=== PATIENT | male | born 1965 | race Caucasian/White ===

== ENCOUNTER 2025-03-04 02:17 | Inpatient (IN) | payer OTHER, SELFPAY ==
[2025-03-03 21:11] VITALS: BP 227/120
[2025-03-03 21:23] LABS: Urine Albumin 3+ (Neg - Trace); Urine Bilirubin Negative (Negative); Urine Character Clear (Clear); Urine Color Yellow; Urine Glucose Negative (Negative); Urine Ketone Negative (Negative); Urine Leukocyte 1+ (Negative); Urine Nitrite Negative (Negative); Urine Occult Blood 4+ (Negative); Urine Specific Gravity 1.025 (<1.030); Urine Urobilinogen Negative (Neg - 1+)
[2025-03-03 21:24] LABS: % Basophils 0.5 % (0-2); % Eosinophils 1.1 % (0-6); % Immature Granulocytes 0.5 % (0-0.5); % Lymphocytes 15.4 % (20.5-51.1); % Monocytes 8.5 % (1.7-9.3); Absolute Basophils 0.1 10^3/uL (0-0.2); Absolute Eosinophils 0.2 10^3/uL (0-0.7); Absolute Immature Granulocytes 0.1 10^3/uL (0-0.05); Absolute Lymphocytes 2.3 10^3/uL (1.2-3.4); Absolute Monocytes 1.2 10^3/uL (0.1-0.6); Absolute Neutrophils 10.8 10^3/uL (1.4-6.5); Hematocrit 44.2 % (39.0-52.0); Hemoglobin 14.9 g/dL (13.0-18.0); Mean Corp Hgb Conc. 33.7 g/dL (33.0-37.0); Mean Corpuscular Hgb 28.7 pg (27.0-31.0); Mean Platelet Volume 9.8 fL (7.4-10.4); Nucleated Red Blood Cells % 0 % (-); Platelet Count 310 10^3/uL (130-400); Red Cell Dist. Width 13.9 % (11.5-14.5); White Blood Cell Count 14.6 10^3/uL (4.8-10.8)
[2025-03-03 21:33] LABS: Urine Squamous Cell 0-2 /LPF (Few); Urine Uric Acid Crystals Present
[2025-03-03 21:34] LABS: Urine Bacteria Many (Negative); Urine Red Blood Cell >100 /HPF (0-2); Urine White Cell 0-2 /HPF (0-5)
[2025-03-03 21:45] LABS: ALT (SGPT) 31 U/L (0-50); AST (SGOT) 23 U/L (17-59); Albumin 4.6 g/dl (3.5-5.0); Alkaline Phosphatase 74 U/L (38-126); Blood Urea Nitrogen 28 mg/dl (9-20); Calcium 9.7 mg/dl (8.4-10.2); Carbon Dioxide 23 mmol/L (22-30); Chloride 109 mmol/L (98-107); Glucose 119 mg/dl (70-99); Potassium 4.4 mmol/L (3.5-5.1); Sodium 141 mmol/L (135-145); Total Bilirubin 0.6 mg/dl (0.2-1.3); Total Protein 7.8 g/dl (6.3-8.2); eGFR > 60.00
[2025-03-03 22:02] VITALS: BMI 40.3
[2025-03-03] MEDS: DILAUDID 0.5 MG IV (22:10)
[2025-03-03] MEDS: NSS 1000 IV (22:10)
[2025-03-03] MEDS: TORADOL 15 MG IV (22:10)
[2025-03-03 22:24] VITALS: BP 209/91
--- NOTE | 2025-03-03 23:30 | EDRN ---
Updated patient and on results, aware provider will be in shortly as well, updated med list, patients pain is under control
[2025-03-04] VITALS (15 sets, daily range): BP systolic 112–190; BP diastolic 67–97; BMI 40.0
--- NOTE | 2025-03-04 00:03 | EDRN ---
Dr. Arenas at bedside seeing patient
--- NOTE | 2025-03-04 01:09 | ED.GENMED ---
History of Present Illness
General
Chief Complaint: Flank Pain
Time Seen by Provider: 03/03/25 23:43
History of Present Illness
History of Present Illness:
Patient is a 59-year-old male with history of kidney stones status post stenting lithotripsy, hypertension, hyperlipidemia, A-fib presenting to the emergency department with flank pain. Patient is for the past few days he been having right flank
pain as well as hematuria. Feels similar to prior kidney stones. Some nausea and vomiting. No diarrhea. His last kidney stone was many years ago. He denies any recent traumatic injuries. No lightheadedness dizziness. No fevers or chills. He
otherwise feels well
Past History
Past History
ED Past Medical History: Arrthythmia (1 episode Afib on Metoprolol) and Other (Kidney stones )
ED Past Surgical History: Urological and Other (Lithotripsies and cystoscopy )
Social History
Tobacco: Non-smoker
Alcohol: None
Drug: None
Personal:
Living: with family
Employment: Employed
Family History
Family History: Other (Noncontributory)
Phy Exam
Physical Exam
Physical Exam:
GENERAL: in no acute distress
HEENT: normocephalic, extraocular movements intact, moist oral mucosa
NECK: normal inspection
RESPIRATORY: no respiratory distress, clear to auscultation bilaterally
CARDIOVASCULAR: regular rate and rhythm
ABDOMEN/: soft, non-distended, non-tender to palpation, no rebound or guarding
EXTREMITIES: non-tender, no edema/swelling
NEUROLOGIC: awake and alert, moves all extremities
SKIN: warm
Course
Orders/Labs/Results
Orders:
Orders
03/03/25 21:17
Complete Blood Count/With Diff Urgent
Comprehensive Metabolic Panel Urgent
Urinalysis Reflex To Culture Urgent
Date Specimen was Collected: 03/03/25
Time Specimen was Collected: 21:12
Urine Microscopic Reflex Cult Urgent
Urine Culture Urgent
JOEY Source: U
Specimen Description:
Date Specimen was Collected: 03/03/25
Time Specimen was Collected: 21:12
03/03/25 22:05
Ketorolac [Toradol] 15 mg IV NOW STA
03/03/25 22:06
0.9% Sodium Chloride 1000 ml [Nss] 1,000 ml IV BOLUS
HYDROmorphone [Dilaudid] 0.5 mg IV NOW STA
03/03/25 22:29
Renal Only US [US Renal Only W/O Bladder] Urgent
Comment:
Reason For Exam: rt flank pain
03/04/25 00:26
HYDROmorphone [Dilaudid] 0.5 mg IV NOW STA
Abnormal Lab Results
03/03/25
21:17
WBC 14.6 H 10^3/uL
(4.8-10.8)
Abs Immat Gran (auto) 0.1 H 10^3/uL
(0-0.05)
Absolute Neuts (auto) 10.8 H 10^3/uL
(1.4-6.5)
Absolute Monos (auto) 1.2 H 10^3/uL
(0.1-0.6)
Lymphocytes % 15.4 L %
(20.5-51.1)
Chloride 109 H mmol/L
(98-107)
BUN 28 H mg/dl
(9-20)
Glucose 119 H mg/dl
(70-99)
Ur Occult Blood Reflex 4+ A
(Negative)
Leukocyte Esterase Rfl 1+ A
(Negative)
Urine RBC >100 A /HPF
(0-2)
Urine Bacteria (Reflex) Many A
(Negative)
Urine Albumin (Reflex) 3+ A
(Neg - Trace)
03/03/25 21:17
03/03/25 21:17
Vital Signs
Initial and Last Documented VS:
Initial Vital Signs
Temp Pulse Resp Pulse Ox
98.0 F 64 16 95
03/03/25 21:08 03/03/25 21:08 03/03/25 21:08 03/03/25 21:08
Last Documented Vital Signs
Temp Pulse Resp BP Pulse Ox
98.0 F 65 16 209/91 95
03/03/25 21:11 03/03/25 21:11 03/03/25 21:11 03/03/25 22:24 03/03/25 21:11
MDM/Problems Addressed
Differential Diagnosis Includes:
Patient is a 59-year-old male with multiple kidney stones in the past presenting to the emergency department with flank pain and hematuria. On arrival patient is hypertensive which patient states is normal when he has a kidney stone. Exam does
show overall well-appearing man. Likely kidney stone versus urine infection. Given benign abdomen less likely be intra-abdominal pathology such as diverticulitis or an acute surgical abdomen. Will obtain blood work and CT scan as well as urine
sample. Will pain control
Patient states that his urologist advised against further CT scans given amount of radiation he has had. He is requesting ultrasound. I do think it is appropriate as my suspicion for kidney stone is much higher on my differential
*Critical Care Note
Total Time (30-74mins, 75-104mins- exclusive of procedures): Not Applicable
Update Note
Update Note:
Ultrasound preliminary read as right-sided obstructive uropathy with hydronephrosis and an 8 mm stone in the proximal ureter. His blood work does show a leukocytosis. His urine does have 1+ leuk with minimal WBC. He is afebrile and overall
well-appearing. Will hold off on antibiotics. He has received multiple rounds of pain medications. After shared decision making patient opted for admission. Discussed with urology who is in agreement I discussed with hospitalist for admission.
ED Attending Note
-
Portions of this chart may have been created with voice recognition software.� Occasional wrong word or��sound alike� substitutions may have occurred due to the inherent limitations of voice recognition software.
Discharge Plan
Departure
Patient Disposition: Admit
Date of Disposition: 03/04/25
Time of Disposition: 01:09
Presentation/result/management discussed w/ accepting MD/DO: Hospitalist
Discharge Problem:
Urinary tract obstruction by kidney stone
Prescriptions:
No Action
metoprolol tartrate 25 MG tablet
12.5 mg PO DAILY
allopurinol 100 MG tablet
100 mg PO DAILY
rosuvastatin 10 MG tablet
10 mg PO MOWEFR
hydrochlorothiazide 12.5 MG tablet
12.5 mg PO Daily Qty: 0 0RF
Rx Instructions:
Hold if systolic blood prssure <130 while on Oxycodone.
potassium citrate 15 MEQ tablet extended release
15 meq PO BID
Referrals:
UNKNOWN - PT DOES,NOT KNOW [Family Provider] -
Interventions
Interventions:
*Risk Screen - Suicide Last Done: 03/03/25 21:11
*General Assessment Last Done: 03/03/25 21:08
*Neglect/Abuse Screening Last Done: 03/03/25 21:08
*ED- Fall Risk Assessment Last Done: 03/03/25 21:08
*ED COVID-19 Vaccine History Last Done: 03/03/25 21:08
QX-Zxetul-Owivsqwkmb Assessment Last Done: 03/03/25 22:21
ED-Male Genitourinary Assessment Last Done: 03/03/25 22:21
Discharge Date and Time
Print Language: OCCITAN
--- NOTE | 2025-03-04 01:43 | HPS.HSE ---
Family Physician
-
Family Physician: NOT KNOW UNKNOWN - PT DOES
Chief Complaint
-
R Flank Pain
History of Present Illness
Patient is a 59y M with PMH significant for nephrolithiasis who presents to ED complaining of R flank pain x 3 days. Patient has prior history of multiple kidney stones in the past. He has required ESWL / cysto and stent on occasion, but has
also passed several stones spontaneously. Patient states that he started with R flank pain on evening. He had associated N/V. His symptoms then waxed and waned over the next few days. This evening he again developed N/V, noted increased
pain and now noted dark colored urine. He was unable to achieved pain relief with his medications at home and presented to the ED for further evaluation.
Medical History
Past Medical History
Past Medical History: Reports Other
Additional Past Medical History:
Recurrent Nephrolithiasis
Hypertension
BHAVYA
Holiday Heart / Lone A-Fib (2016)
Past Surgical History: Reports Other
Additional Past Surgical History:
ESWL
Cysto / Stent
Bilateral Knee Arthroscopies
Social History
Tobacco: Non-smoker
Alcohol: Occasional
Drug: None
Family History
Family History: Not pertinent
Allergies / Home Medications
Allergies reflects when Allergies were last updated in [employer]
Home Medications with original date entered in [employer]
Allergy/Medication List:
Allergies
Allergy/AdvReac Type Severity Reaction Status Date / Time
diltiazem HCl [From Cardizem] Allergy Unknown Hives Verified 03/27/22 13:09
Latex, Natural Rubber Allergy Rash Verified 03/27/22 13:09
Home Medications
metoprolol tartrate 25 mg tablet 12.5 mg PO DAILY Blood pressure 04/19/17
allopurinol 100 mg tablet 100 mg PO DAILY Gout 10/30/20
rosuvastatin 10 mg tablet 10 mg PO MOWEFR High cholesterol 10/30/20
hydrochlorothiazide 12.5 mg tablet 12.5 mg PO Daily ##0 11/06/20
potassium citrate 15 mEq (1,620 mg) tablet,extended release 15 meq PO BID 04/13/21
Review of Systems
-
History Source: Patient
A 12 point ROS was completed and negative except as noted: Yes
Constitutional: Denies Fever or Chills
Respiratory: Denies Cough or Trouble Breathing
Cardiac: Denies Chest Pain or Palpitations
Abdomen/GI: Reports Nausea and Vomiting; Denies Abdominal Pain, Diarrhea, Bloody Stools or Black Stools
: Reports Flank Pain and Dark Urine; Denies Dysuria or Frequency
Neurological: Denies Dizzy or Headache
Physical Exam
Vital Signs
Vital Signs
Temp Pulse Resp BP Pulse Ox
98.0 F 65 16 209/91 95
03/03/25 21:11 03/03/25 21:11 03/03/25 21:11 03/03/25 22:24 03/03/25 21:11
Physical Exam
General: Other (59y M in no distress.)
HEENT: Moist mucous membranes and PERRLA
Respiratory: Clear; No Wheezes, Rales or Rhonchi
Cardiac: S1/S2 and Regular Rhythm; No Murmur
GI: Soft, Non Tender, Non Distended and Normal Bowel Sounds
Genito-urinary: No costovertebral tender
Musculoskeletal: No Clubbing, No Cyanosis and No Edema
Neuro: AO x 3
Laboratory Results
-
03/03/25 21:17
03/03/25 21:17
Laboratory Results
Total Bilirubin 0.6 mg/dl (0.2-1.3) 03/03/25 21:17
AST 23 U/L (17-59) 03/03/25 21:17
ALT 31 U/L (0-50) 03/03/25 21:17
Alkaline Phosphatase 74 U/L (38-126) 03/03/25 21:17
Impression/Plan
-
A/P: Patient is a 59y M with PMH significant for recurrent kidney stones who presents to ED complaining of R flank pain for the past 3 days.
Right Ureterolithiasis
Obstructive Uropathy secondary to the above
- Admit for further evaluation and treatment.
- US done in the ED shows 0.8cm stone in the proximal R ureter with associated hydro.
- NPO, IVFs, strain urine, Flomax, etc.
- Pain control, antiemetics, etc.
- Urology evaluation for additional recommendations.
Hypertension - Uncontrolled
- BP markedly elevated in the ED - likely secondary to significant pain on arrival.
- Continue efforts at pain control as noted above.
- Continue usual metoprolol and HCTZ.
- IV hydralazine as needed for very high BP.
- Adjust regimen as needed.
Holiday Heart / Lone A-Fib
- Isolated episode in 2016. No recurrence since that time.
- Patient takes metoprolol as preventative.
- Not on any OAC, antiplatelets, etc.
Obesity due to excess calories
- Affects all aspects of care.
- Encourage healthy diet and increased activity with goal of weight loss.
DVT Prophylaxis: SCDs
Code Status: Full
--- NOTE | 2025-03-04 02:30 | EDRN ---
Patient remains pain free at this time, sitting in a chair for comfort aware to call if pain increases
[2025-03-04] MEDS: NSS 1000 IV ×2 (04:18→11:45)
[2025-03-04] MEDS: TORADOL 15 MG IV (05:19)
[2025-03-04] MEDS: DILAUDID 0.5 MG IV (05:20)
--- NOTE | 2025-03-04 05:41 | EDRN ---
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
--- NOTE | 2025-03-04 06:14 | EDRN ---
Urology at bedside
[2025-03-04 06:27] LABS: Hematocrit 40.4 % (39.0-52.0); Hemoglobin 13.5 g/dL (13.0-18.0); Mean Corp Hgb Conc. 33.4 g/dL (33.0-37.0); Mean Corpuscular Hgb 28.8 pg (27.0-31.0); Mean Corpuscular Volume 86.3 fL (80.0-94.0); Mean Platelet Volume 10.4 fL (7.4-10.4); Platelet Count 274 10^3/uL (130-400); Red Blood Cell Count 4.68 10^6/uL (4.70-6.10)
--- NOTE | 2025-03-04 06:30 | CON.MD ---
Consultation - Medical
-
see dictated note
pt with long hx of stones
now presents with several days of right colic
no fevers/chills
ct shows large right renal stone- but two large right ureteral stones
reviewed options
to OR today for right ureteral stent- which would then be followed by second stage stone treatment in 1-2 weeks
rational- risks,benefits,alternatives and disabilities reviewed
[2025-03-04 06:49] LABS: Blood Urea Nitrogen 25 mg/dl (9-20); Calcium 8.6 mg/dl (8.4-10.2); Carbon Dioxide 24 mmol/L (22-30); Chloride 111 mmol/L (98-107); Estimated Creatinine Clearance 107 ml/min; Glucose 110 mg/dl (70-99); Potassium 4.2 mmol/L (3.5-5.1); Sodium 141 mmol/L (135-145); eGFR > 60.00
[2025-03-04] MEDS: ZYLOPRIM 100 MG PO (08:08)
[2025-03-04] MEDS: FLOMAX 0.4 MG PO (08:08)
[2025-03-04] MEDS: ORETIC 12.5 MG PO (08:09)
[2025-03-04] MEDS: KCL 20 MEQ PO (08:09)
[2025-03-04] MEDS: LOPRESSOR 12.5 MG PO (08:09)
[2025-03-04] MEDS: CRESTOR 10 MG PO (08:10)
--- NOTE | 2025-03-04 10:59 | W.IMMPOSTOP ---
Surgical Immed Post Op Note
-
Primary Surgeon:
manuela
Assisting Surgeon:
Pre-op Diagnosis:
right ureteral and reanl stones
Post-op Diagnosis:
same
Procedure Performed:
cysto, right retrograde, stone manipulation, right ureteral stent
Anesthesia Type:
gen
Specimen / Cultures:
none
Estimated Blood Loss:
1cc
Complications:
none
Operative Findings:
stent placed
discharge home later today if stable
--- NOTE | 2025-03-04 11:23 | W.DCSUMMARY ---
Discharge Summary
Discharge Data
Date of Admission: 03/04/25
Date of Discharge: 03/04/25
-
Pending Results: Yes
Hospital Course
59-year-old male with past medical history of nephrolithiasis came to the ER with right flank pain. Patient also had some associated nausea and vomiting. Patient was seen by urology throughout hospitalization and was taken for stone manipulation
and stent placement. Post stent placement urology recommended patient can be discharged home if continues to improve. Patient symptoms continues to improve over time and he was able to tolerate regular diet. Since his patient symptoms were
improving, he was then discharged home with instructions to follow-up with all his physicians outpatient.
Discharge Plan
-
Patient Disposition: Home (Routine Discharge)
Discharge Diagnosis/Procedures: right ureteral and reanl stones s/p right ureteral stent placed for stones
Condition: Good
Diet: No restrictions
Activity: No restrictions
Driving Restrictions: As prior to admission
Bathing Restrictions: OK to Shower
Wound Care: expect blood in urine, urinary urgency and frequency and some pain with urination
Referrals:
Selvin Dallas MD [Active] - (call to schedule follow up plan with dr dallas)
UNKNOWN - PT DOES,NOT KNOW [Family Provider] - in less than 1 week
Prescriptions:
New
tamsulosin 0.4 mg capsule
0.4 mg PO DAILY Qty: 30 0RF
phenazopyridine [Pyridium] 100 mg tablet
100 mg PO BID Qty: 60 0RF
nitrofurantoin monohyd/m-cryst [Macrobid] 100 mg capsule
100 mg PO BID Qty: 14 0RF
tramadol 50 mg tablet
50 mg PO Q8H PRN (Reason: Pain) Qty: 20 0RF
Continued
metoprolol tartrate 25 MG tablet
12.5 mg PO DAILY
allopurinol 100 MG tablet
100 mg PO DAILY
rosuvastatin 10 MG tablet
10 mg PO MOWEFR
hydrochlorothiazide 12.5 MG tablet
12.5 mg PO Daily Qty: 0 0RF
Rx Instructions:
Hold if systolic blood prssure <130 while on Oxycodone.
potassium citrate 15 MEQ tablet extended release
15 meq PO BID
Discharge Orders:
Discharge Patient (As Directed); Ordered 03/04/25
Ordered By: Tonio Rios Jr.
Discharge Date and Time
Discharge Date/Time: 03/04/25 16:28
Print Language: AFGHAN
--- NOTE | 2025-03-04 11:23 | W.PN.UPDATE ---
Update Note
Progress Note Update
Discussed with Dr. Rios from urology. Patient with cystoscopy today with stone manipulation and right ureteral stent. Postop per urology patient for discharge home. Urology placed orders.
--- NOTE | 2025-03-04 13:31 | CM ---
Patient seen at bedside
CM role explained
IA completed
Lives with in 2 story home, 2 steps to enter, flight to second floor bedroom
PLOF: Independent
Denies DME
Denies VN, had outpatient PT in past for ortho
Denies insecurities
IMM n/a
tentative dc home later today
PCP: Adal Jeter
Pharmacy: [facility], [place]
PLAN: home, no needs
to transport
[2025-03-04] MEDS: Pyridium 100 MG PO (15:33)
== END 2025-03-04 16:28 | disposition home or self-care (01) | DRG 661 ==
LOC: 3 WEST ACU 02:17
PROVIDERS: Student in an Organized Health Care Education/Training Program; ADMITTING PHYSICIAN Hospitalist; ATTENDING PHYSICIAN Internal Medicine; CONSULT PHYSICIAN Specialist; EMERGENCY PHYSICIAN Student in an Organized Health Care Education/Training Program
PROC: BT1D1ZZ Fluoroscopy of Right Kidney, Ureter and Bladder using Low Osmolar Contrast (ICD-10-PCS; 2025-03-04)
PROC: 0T768DZ Dilation of Right Ureter with Intraluminal Device, Via Natural or Artificial Opening Endoscopic (ICD-10-PCS; 2025-03-04)
DX: N13.6 Pyonephrosis (principal); I10 Essential (primary) hypertension; E78.5 Hyperlipidemia, unspecified; I48.91 Unspecified atrial fibrillation; G47.33 Obstructive sleep apnea (adult) (pediatric); E66.09 Other obesity due to excess calories; N13.9 Obstructive and reflux uropathy, unspecified; Z87.442 Personal history of urinary calculi; Z88.8 Allergy status to other drugs, medicaments and biological substances; Z91.040 Latex allergy status; Z68.39 Body mass index [BMI] 39.0-39.9, adult
CPT/HCPCS: 74176; 74420; 76000; 76775; 80048; 80053; 81003; 81015; 85025; 85027; 87086; 99285; C1758; C2617

== ENCOUNTER 2025-03-21 05:55 | Day surgery (SDC) | payer OTHER, SELFPAY ==
[2025-03-08 11:01] VITALS: BMI 40.3
--- NOTE | 2025-03-08 14:01 | PTCARENOTE ---
Abnormal EKG on 03/08/25. Dr. Walton aware. No intervention require.
[2025-03-21] VITALS (9 sets, daily range): BP systolic 148–187; BP diastolic 79–103; BMI 40.3
[2025-03-21] MEDS: NORMOSOL-R/PLASMALYTE-A 1000 IV (06:26)
[2025-03-21] MEDS: Pyridium 200 MG PO (06:26)
[2025-03-21] MEDS: FLOMAX 0.4 MG PO (09:29)
== END 2025-03-21 10:50 | disposition home or self-care (01) ==
LOC: SDS 05:55
PROVIDERS: ATTENDING PHYSICIAN Specialist; FAMILY PHYSICIAN Family Medicine
DX: N20.2 Calculus of kidney with calculus of ureter (principal)
CPT/HCPCS: 52356; 36415; 74018; 76000; 82365; 93005; C1894; C2617